=== PATIENT | male | born 1980 | race Caucasian/White ===

== ENCOUNTER 2017-03-07 15:54 | Inpatient (IN) | payer BC, OTHER ==
[2017-03-07] MEDS ORDERED: HYDROmorphone 1 MG/ML Syringe IVPUSH ONE ×3 (16:05→17:25)
[2017-03-07] MEDS ORDERED: Metoclopramide 10 MG/2 ML SDV IVPUSH ONE (16:05)
[2017-03-07] MEDS ORDERED: Iopamidol 612 MG/ML 150 ML Bottle IVPUSH ONE (16:07)
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
[2017-03-07] MEDS ORDERED: Sodium Chloride 0.9% 1,000 ML IV SCH (16:15)
[2017-03-07] MEDS: Sodium Chloride 0.9% 10 ML Syringe FLUSH ONE ×2 (16:46→16:49)
--- NOTE | 2017-03-07 16:51 | CT ---
Head CT Technique: Multiple axial sections through the brain were obtained. Intravenous contrast was not utilized. Comparison: No previous studies. Findings: Streak artifact is identified from backboard. This limits some details. Within the limitation caused by artifact, ventricles along with basal cisterns and sulci over the convexities are within normal limits. No abnormal parenchymal densities are seen. No evidence of intracranial hemorrhage. No midline shift or mass effect is seen. Bone window settings were reviewed which shows the visualized sinuses to appear clear. No discrete skull fracture is seen. Impression: 1. Slightly limited study as described above. Nothing acute is appreciated intracranially. No skull fracture is identified. Diagnostic code #2
--- NOTE | 2017-03-07 16:54 | CT ---
CT cervical spine Technique: Multiple axial sections were obtained from above C1 inferiorly to the top of T2. Reconstructed sagittal and coronal images were reviewed. Previous: No previous exam. Findings: Visualized mastoid sinuses and middle ear cavities are clear. Vertebral body heights and disc spaces are preserved. Vertebral bodies and posterior arches are intact. Minimal anterior endplate osteophytes are seen at C5-6. Minimal degenerative spurring noted between the dens and anterior arch of C1. No abnormal subluxation is seen. Mild scoliosis is seen. Impression: 1. Minimal degenerative change. 2. Mild scoliosis. 3. No acute fracture or abnormal subluxation is seen on CT study of the cervical spine. Diagnostic code #2
--- NOTE | 2017-03-07 17:00 | CT ---
CT thoracic spine Technique: Multiple axial sections were obtained through the thoracic spine. Reconstructed sagittal and coronal images were reviewed. Comparison: No previous study. Findings: Mild scattered endplate osteophytes are seen. Osteophytes are most prominent within the mid and lower thoracic spine. Minimal anterior wedging is noted of T9 believed to be developmental. Vertebral bodies and posterior arches are intact with no fracture being seen. No bony central or bony neural foraminal stenosis is seen. Impression: 1. Minimal endplate osteophytes. Slight anterior wedging of T9 believed to be developmental and old. 2. No acute abnormality is identified on CT study of the thoracic spine. Diagnostic code #2
--- NOTE | 2017-03-07 17:02 | CR ---
Left tibia and fibula: AP and lateral views of the left tibia and fibula were obtained. Fractures are identified in 2 locations within the distal fibula. Short intramedullary narcisa is seen within the fibula which shows bending. 2 screws are noted within the medial malleolus. Oblique fracture identified within the distal one third diaphysis of the tibia with mild angulation. No proximal abnormality is seen. Impression: 1. Fibular and tibia fracture. Bending of the intramedullary narcisa seen within the fibula. 2. No proximal abnormality is seen. Diagnostic code #3
[2017-03-07] MEDS ORDERED: Lidocaine 1% 10 ML MDV INJECT ONE (17:07)
--- NOTE | 2017-03-07 17:08 | CT ---
CT lumbar spine Technique: Multiple axial sections were obtained through the lumbar spine. Reconstructed sagittal and coronal images were reviewed. Findings: Spondylolisthesis is seen at L5-S1 which measures approximately 4.5 mm in severity. Findings are due to bilateral spondylolytic defects which appear to be old. Mild diffuse posterior disc bulge is seen. Vertebral bodies and posterior arches are otherwise intact with no acute fracture seen. No other findings of abnormal subluxation is seen. Posterior discs other than at L5-S1 are fairly well preserved. No traumatic disc herniation is seen. Minimal scoliosis is noted. Impression: 1. Mild spondylolisthesis due to to spondylolytic defects at L5-S1. These spondylolytic defects are felt to be old. Minimal scoliosis is seen. 2. No acute abnormality is identified on CT study of the lumbar spine. Diagnostic code #2
[2017-03-07] MEDS ORDERED: Lidocaine 1% 50 ML MDV ONE (17:13)
[2017-03-07] MEDS ORDERED: Diphtheria,Pertussis(Acell),Tetanus Vaccine 0.5 ML SDV inactive IM ONE (17:16)
--- NOTE | 2017-03-07 17:22 | CR ---
Left hand: 3 views of the left hand were obtained. No fracture, dislocation or other bony abnormality is seen. Impression: 1. No abnormality is identified on left hand exam. Diagnostic code #1
--- NOTE | 2017-03-07 17:23 | CT ---
CT chest Technique: Multiple axial sections through the chest were obtained. Reconstructed coronal and sagittal images were reviewed. Findings: No pericardial thickening is seen. No coronary artery calcification is seen. Mediastinum and hilar regions appear within normal limits. Opacified great vessels appear within normal limits. Lungs are clear. No pleural effusions or pneumothorax is seen. No pulmonary contusion is identified. No discrete rib fracture is seen. Impression: 1. Nothing acute seen on CT study of the chest. Diagnostic code #1 CT abdomen and pelvis Technique: Multiple axial sections were obtained from above the dome of the diaphragm inferiorly through the pubic symphysis. Intravenous contrast was utilized. Liver shows no focal parenchymal abnormality. Surgical clips are seen from prior cholecystectomy. Spleen appears within normal limits. Adrenal glands show no nodule. Pancreas is within normal limits. Small soft tissue nodules are identified off the spleen compatible with accessory splenic tissue. Kidneys show contrast-enhancement without hydronephrosis or mass. Aorta shows mild atherosclerotic calcification. No aneurysm is seen. No retroperitoneal adenopathy is seen. Appendix is seen which appears normal. No pelvic mass or adenopathy is seen. No free fluid or inflammatory change is seen within the abdomen or pelvis. Delayed images through the bladder show contrast within the distal ureters and within the bladder. Bone window settings were reviewed which again shows spondylolytic defects at L5-S1 with mild spondylolisthesis. No pelvic fracture is seen. Impression: 1. Incidental findings. Nothing acute is identified on CT study of the abdomen and pelvis. Diagnostic code #2
[2017-03-07] MEDS ORDERED: Morphine 10 MG/ML Syringe IVPUSH ONE (17:50)
[2017-03-07] MEDS ORDERED: Acetaminophen/oxyCODONE 325-5 MG Tab PO ONE (18:34)
[2017-03-07] MEDS ORDERED: Naloxone 2 MG/2 ML Syringe IVPUSH PRN (18:34)
[2017-03-07] MEDS ORDERED: Ondansetron 4 MG Tab.DIS PO PRN (18:34)
[2017-03-07] MEDS ORDERED: LORazepam 2 MG/ML MDV IVPUSH ONE (18:40)
[2017-03-07] MEDS ORDERED: Sodium Chloride 0.9% 10 ML Syringe FLUSH PRN (18:44)
[2017-03-07] MEDS: Cyclobenzaprine 10 MG Tab PO PRN (18:59)
[2017-03-07] MEDS: Morphine 2 MG/ML Syringe IVPUSH PRN ×2 (19:03→21:13)
[2017-03-07] MEDS: Acetaminophen/oxyCODONE 325-5 MG Tab PO PRN (21:11)
[2017-03-07] MEDS: oxyCODONE 5 MG Tab PO PRN (23:37)
[2017-03-08] MEDS: Morphine 2 MG/ML Syringe IVPUSH PRN ×4 (01:28→22:00)
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
[2017-03-08] MEDS ORDERED: Bupivacaine 0.25% 30 ML SDV ONE (07:02)
[2017-03-08] MEDS ORDERED: Rocuronium 50 MG/5 ML Vial ONE (07:23)
[2017-03-08] MEDS ORDERED: Ondansetron 4 MG/2 ML SDV ONE (07:23)
[2017-03-08] MEDS ORDERED: fentaNYL 250 MCG/5 ML SDV ONE (07:23)
[2017-03-08] MEDS ORDERED: Propofol 200 MG/20 ML SDV ONE (07:23)
[2017-03-08] MEDS ORDERED: Lidocaine 1% 4 ML ONE (07:23)
[2017-03-08] MEDS ORDERED: Midazolam 1 MG/ML 2 ML SDV ONE (07:23)
[2017-03-08] MEDS ORDERED: ceFAZolin 1 GM Vial ONE (07:27)
[2017-03-08] MEDS ORDERED: Lactated Ringers 1,000 ML ONE ×2 (07:27→10:33)
[2017-03-08] MEDS ORDERED: Morphine PF 10 MG/10 ML SDV ONE (07:42)
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
[2017-03-08] MEDS ORDERED: Metoclopramide 10 MG/2 ML SDV IV PRN (08:07)
[2017-03-08] MEDS ORDERED: fentaNYL 100 MCG/2 ML SDV IVPUSH PRN (08:07)
[2017-03-08] MEDS ORDERED: Ondansetron 4 MG/2 ML SDV IVPUSH PRN (08:07)
[2017-03-08] MEDS ORDERED: diphenhydrAMINE 50 MG/ML SDV IVPUSH PRN (08:07)
[2017-03-08] MEDS ORDERED: Meperidine PF 50 MG/ML Syringe IVPUSH PRN (08:07)
[2017-03-08] MEDS ORDERED: Phenylephrine/Normal Saline 100 MCG/ML 10 ML Syringe ONE (08:17)
[2017-03-08] MEDS: Bupivacaine 0.25% 30 ML SDV ONE ×2 (08:27→10:31)
--- NOTE | 2017-03-08 08:36 | PCM.SN ---
- Free Text/Narrative Note: 03/08/17 [id number] Monitors on. Alarms set. Sit for Spinal for post op pain relief per patient and surgeon request. Sterile prep and drape. Clear free flow CSF. No heme no paresthesia. Bupivacaine 7.5% 1 ml given with duramorph .2mg PF. with 1 ml CSF. Supine after. Maximino procedure well. Vitals stable. 156/74 HR 103 SAt 99% REsp 16
--- NOTE | 2017-03-08 10:58 | PCM.POSTAN ---
POST ANESTHESIA ASSESSMENT - MENTAL STATUS Mental Status: somnolent - VITAL SIGNS Pulse Rate: 89 SaO2: 100 Resp Rate: 11 Blood Pressure: 111/75 Temperature: 98.1 F - RESPIRATORY Respiratory Status: respiratory rate WNL, airway patent, O2 saturation stable, supplemental oxygen - CARDIOVASCULAR CV Status: pulse rate WNL, blood pressure stable - GASTROINTESTINAL GI Status: no symptoms - PAIN Pain Score: 0 - POST OP HYDRATION Hydration Status: adequate & stable
[2017-03-08] MEDS ORDERED: Albuterol 0.083% 2.5 MG/3 ML Neb Soln NEB ONE (11:07)
[2017-03-08] MEDS ORDERED: Albuterol 0.083% 2.5 MG/3 ML Neb Soln NEB PRN (11:09)
[2017-03-08] MEDS: ceFAZolin 2 GM in Premix Bag 1 BAG IV SCH ×2 (14:07→22:07)
[2017-03-08] MEDS: oxyCODONE 5 MG Tab PO PRN ×2 (14:31→20:58)
--- NOTE | 2017-03-08 18:09 | PCM48HPAN ---
Post Anesthesia Note - EVALUATION WITHIN 48HRS OF ANESTHETIC Vital Signs in Normal Range: Yes Patient Participated in Evaluation: Yes Respiratory Function Stable: Yes Airway Patent: Yes Cardiovascular Function Stable: Yes Hydration Status Stable: Yes Pain Control Satisfactory: Yes (describes as an 8- pain pills given) Nausea and Vomiting Control Satisfactory: Yes Mental Status Recovered: Yes
[2017-03-08] MEDS: Acetaminophen/oxyCODONE 325-5 MG Tab PO PRN ×2 (18:11→22:18)
[2017-03-08] MEDS: Cyclobenzaprine 10 MG Tab PO PRN (20:02)
[2017-03-08] MEDS ORDERED: HYDROmorphone/Normal Saline 6 MG/30 ML PCA Vial IV PRN (22:38)
[2017-03-08] MEDS ORDERED: Ketorolac 30 MG/ML SDV IM ONE (22:42)
[2017-03-08] MEDS ORDERED: Ketorolac 30 MG/ML SDV IVPUSH ONE (22:42)
[2017-03-08] MEDS ORDERED: Sodium Chloride 0.9% 1,000 ML IV SCH (23:00)
[2017-03-09] MEDS: ceFAZolin 2 GM in Premix Bag 1 BAG IV SCH (06:23)
--- NOTE | 2017-03-09 08:01 | PCM.OPNOTE ---
- General Post-Op/Procedure Note Date of Surgery/Procedure: 03/08/17 Operative Procedure(s): open reduction internal fixation of left distal tibia and fibula with hardware removal left fibula Pre Op Diagnosis: left distal extraarticular tibia fracture and distal fibula fracture with retained hardware Post-Op Diagnosis: Same Anesthesia Technique: Local, MAC, Spinal Primary Surgeon: Micheal Valente Anesthesia Provider: Linette Kaiser Contact Lens Polisher: Hollie Lucia EBL in mLs: 30 Complications: None Condition: Good Free Text/Narrative:: Intake & Output 03/08/17 03/09/17 03/09/17 22:59 06:59 14:59 Intake Total 620 930 Output Total 400 1550 Balance 220 -620
--- NOTE | 2017-03-09 09:17 | OR ---
DATE OF OPERATION: 03/08/2017 SURGEON: Micheal Valente MD OPERATION PERFORMED: Open reduction and internal fixation of the left distal tibia and fibula fracture with hardware removal, left fibula. PREOPERATIVE DIAGNOSIS: Left distal extra-articular tibial fracture and distal fibular fracture with retained hardware. POSTOPERATIVE DIAGNOSIS: Left distal extra-articular tibial fracture and distal fibular fracture with retained hardware. ANESTHESIA: Local MAC with spinal. ANESTHESIA PROVIDER: Linette Kaiser CRNA SUPERVISING NURSE: Hollie Lucia PA-C. ESTIMATED BLOOD LOSS: 30 mL. COMPLICATIONS: None. CONDITION: Stable. DESCRIPTION OF PROCEDURE: The patient was identified in the preop holding area, proper site was marked and identified by the surgeon. The patient was taken back to the operating theater, where after adequate anesthesia the patient's left lower extremity had a nonsterile tourniquet applied and then was sterilely prepped and draped in the usual sterile fashion. OR time-out was performed. The patient received 2 g IV Ancef. At this time, the left upper extremity was sterilely prepped and draped in the usual sterile fashion. Left upper extremity was exsanguinated. Tourniquet was insufflated to 300 mmHg. At this time, it was decided that secondary to the pin being bent in his fibula, this would have to be removed in order to get a correction of the fracture. A small incision was made on the distal fibula. Just distal lateral malleolus, the previous brush narcisa was identified and then was removed. At this time, a correction of the deformity could be made. Using C-arm fluoroscopy, it was decided that we would use a distal tibial plate as the patient's fracture was too distal roughly only 15 mm from the articular surface. The standard anterolateral approach to the tibia was made, centered in line with the 4th ray. This was taken down to the extensor retinaculum, which was incised along its length. The tendons were retracted medially. Superficial peroneal nerve was protected and the fracture site was identified. At this time, a reduction was done with a [id number] clamp. Two 3.5 cortical screws were placed in lag technique by design across the fracture site and was found to have adequate fixation with complete reduction on AP and lateral views. At this time, a Peggy stainless steel distal tibial anterolateral locking plate was placed. We used an 8-hole plate and was found to be able to get 4 cortices above the fracture. At this time, it was aligned properly using C-arm fluoroscopy, and it was held provisionally in place with K-wires. Starting distally, I was able to place a 3.5 cortical screw distally in the shaft and then 3 screws were placed, 2 locking, 1 nonlocking, a bit on the distal aspect near the articular margin. Attention was then turned proximally and 4 screws were placed proximally in the shaft, proximal to the fracture site, 2 locking and 2 nonlocking screws. One of the locking screws was unable to be fully seated, but was found to have adequate fixation. These were all done percutaneous with perfect [place] technique. The 1 more nonlocking screw was placed distally along with 1 more locking screw and those was found to have adequate fixation. At this time, it was decided that we would do subcutaneous plating of the fibula. A 1/3 semitubular plate was then placed up subcutaneous on the fibula and percutaneous technique was again used to fill 2 screw holes distally and 3 screw holes proximally. This found to have adequate reduction and fixation on both AP and lateral views. Adequate saline was irrigated through both wounds. A 0 Vicryl was used for closure of the retinaculum, 2-0 Vicryl was used subcutaneously, and 3-0 and 4-0 nylon were used for the skin. The patient was placed in a posterior slab splint, tolerated the procedure well, and was sent to PACU in stable condition. SUSAN /[id number]
[2017-03-09] MEDS: oxyCODONE 5 MG Tab PO PRN (09:21)
[2017-03-09] MEDS: Aspirin 325 MG Tab.EC PO SCH ×2 (09:21→21:14)
[2017-03-09] MEDS: Cyclobenzaprine 10 MG Tab PO PRN ×2 (09:22→21:14)
[2017-03-09] MEDS: Acetaminophen/oxyCODONE 325-5 MG Tab PO PRN ×3 (09:43→21:22)
[2017-03-09] MEDS ORDERED: HYDROmorphone 0.5 MG/0.5 ML Syringe IVPUSH ONE (09:50)
--- NOTE | 2017-03-09 12:06 | PCM.SURGPN ---
- General Info Date of Service: 03/09/17 POD#: 1 Functional Status: Reports: other - Review of Systems General: Denies: Fever, Chills Pulmonary: Denies: shortness of breath Musculoskeletal: Reports: other (The pt reports his pain is better controlled today. He stated he did well with therapy today.) - Patient Data Vitals - most recent: Last Vital Signs Temp 98.2 F 03/09/17 11:51 Pulse 86 03/09/17 11:51 Resp 16 03/09/17 11:51 BP 181/92 H 03/09/17 11:51 Pulse Ox 99 03/09/17 11:51 Weight - most recent: 249 lb 12.8 oz I&O - last 24 hours: Intake & Output 03/08/17 03/09/17 03/09/17 22:59 06:59 14:59 Intake Total 620 930 240 Output Total 400 1550 Balance 220 -620 240 Med Orders - Current: Current Medications Albuterol (Proventil Neb Soln) 2.5 mg NEB Q4HRRT PRN PRN Reason: Shortness of Breath Aspirin (Ecotrin) 325 mg PO BID COUNTS INCLUDE 234 BEDS AT THE [facility] Last Admin: 03/09/17 09:21 Dose: 325 mg Cyclobenzaprine HCl (Flexeril) 10 mg PO TID PRN PRN Reason: Spasms Last Admin: 03/09/17 09:22 Dose: 10 mg Diphenhydramine HCl (Benadryl) 25 mg IVPUSH Q6H PRN PRN Reason: pruritis Last Admin: 03/08/17 14:31 Dose: 25 mg Sodium Chloride (Normal Saline) 1,000 mls @ 25 mls/hr IV ASDIRECTED COUNTS INCLUDE 234 BEDS AT THE [facility] Stop: 03/12/17 22:57 Last Admin: 03/08/17 23:13 Dose: 25 mls/hr Morphine Sulfate (Morphine) 2 mg IVPUSH Q2H PRN PRN Reason: Pain Last Admin: 03/08/17 22:00 Dose: 2 mg Ondansetron HCl (Zofran Odt) 4 mg PO Q6H PRN PRN Reason: Nausea Oxycodone HCl (Oxycodone) 5 mg PO Q6H PRN PRN Reason: Pain (severe 7-10) Last Admin: 03/09/17 09:21 Dose: 5 mg Oxycodone/Acetaminophen (Percocet 325-5 Mg) 1 - 2 tab PO Q4H PRN PRN Reason: Pain Last Admin: 03/09/17 09:43 Dose: 2 tab Sodium Chloride (Saline Flush) 10 ml FLUSH ASDIRECTED PRN PRN Reason: Keep Vein Open Discontinued Medications Albuterol (Proventil Neb Soln) 2.5 mg NEB ONETIME ONE Stop: 03/08/17 11:08 Last Admin: 03/08/17 12:24 Dose: Not Given Bupivacaine HCl (Marcaine 0.25%) Confirm Administered Dose 30 ml .ROUTE .STK- MED ONE Stop: 03/08/17 06:47 Last Admin: 03/08/17 10:31 Dose: 20 ml Bupivacaine HCl (Marcaine 0.25%) Confirm Administered Dose 30 ml .ROUTE .STK- MED ONE Stop: 03/08/17 07:03 Cefazolin Sodium (Ancef) Confirm Administered Dose 2 gm .ROUTE .STK-MED ONE Stop: 03/08/17 07:28 Diphtheria/Tetanus/Acell Pertussis (Boostrix) 0.5 ml IM .ONCE ONE Stop: 03/07/17 17:17 Last Admin: 03/07/17 17:44 Dose: 0.5 ml Fentanyl (Sublimaze) Confirm Administered Dose 250 mcg .ROUTE .STK-MED ONE Stop: 03/08/17 07:24 Fentanyl (Sublimaze) 50 mcg IVPUSH Q5M PRN PRN Reason: Pain Hydromorphone HCl (Dilaudid) 1 mg IVPUSH ONETIME ONE Stop: 03/07/17 16:06 Last Admin: 03/07/17 16:44 Dose: 1 mg Hydromorphone HCl (Dilaudid) 1 mg IVPUSH ONETIME ONE Stop: 03/07/17 16:06 Last Admin: 03/07/17 16:05 Dose: 1 mg Hydromorphone HCl (Dilaudid) 1 mg IVPUSH ONETIME ONE Stop: 03/07/17 17:26 Last Admin: 03/07/17 17:24 Dose: 1 mg Hydromorphone HCl (Dilaudid Press Leader 6 Mg In Ns 30 Ml) 6 mg IV ASDIRECTED PRN; Protocol PRN Reason: Pain (severe 7-10) Last Admin: 05/06/17 23:09 Dose: 6 mg Hydromorphone HCl (Dilaudid) 0.5 mg IVPUSH ONETIME ONE Stop: 03/09/17 09:51 Last Admin: 03/09/17 09:43 Dose: 0.5 mg Sodium Chloride (Normal Saline) 1,000 mls @ 200 mls/hr IV ASDIRECTED COUNTS INCLUDE 234 BEDS AT THE [facility] Last Admin: 03/07/17 16:40 Dose: 200 mls/hr Lidocaine HCl (Xylocaine-Mpf 1%) Confirm Administered Dose 4 mls @ as directed .ROUTE .STK-MED ONE Stop: 03/08/17 07:24 Lactated Ringer's (Ringers, Lactated) Confirm Administered Dose 1,000 mls @ as directed .ROUTE .STK-MED ONE Stop: 03/08/17 07:28 Lactated Ringer's (Ringers, Lactated) Confirm Administered Dose 1,000 mls @ as directed .ROUTE .STK-MED ONE Stop: 03/08/17 10:34 Cefazolin Sodium/Dextrose 2 gm (/ Premix) 50 mls @ 100 mls/hr IV Q8H COUNTS INCLUDE 234 BEDS AT THE [facility] Stop: 03/09/17 07:29 Last Admin: 03/09/17 06:23 Dose: 100 mls/hr Iopamidol (Isovue-300 (61%)) 150 ml IVPUSH ONETIME ONE Stop: 03/07/17 16:08 Last Admin: 03/07/17 16:25 Dose: 125 ml Ketorolac Tromethamine (Toradol) 50 mg IVPUSH ONETIME ONE Stop: 03/08/17 22:43 Last Admin: 03/08/17 22:42 Dose: Not Given Ketorolac Tromethamine (Toradol) 50 mg IM ONETIME ONE Stop: 03/08/17 22:43 Last Admin: 03/09/17 00:51 Dose: 50 mg Lidocaine HCl (Xylocaine 1%) 50 ml INJECT ONETIME ONE Stop: 03/07/17 17:08 Last Admin: 03/07/17 21:18 Dose: Not Given Lidocaine HCl (Xylocaine 1%) Confirm Administered Dose 50 ml .ROUTE .STK-MED ONE Stop: 03/07/17 17:14 Last Admin: 03/07/17 18:18 Dose: Not Given Lorazepam (Ativan) 0.5 mg IVPUSH ONETIME ONE Stop: 03/07/17 18:41 Last Admin: 03/07/17 18:46 Dose: 0.5 mg Meperidine HCl (Demerol) 12.5 mg IVPUSH ONETIME PRN PRN Reason: shivering Stop: 03/09/17 08:08 Metoclopramide HCl (Reglan) 10 mg IVPUSH ONETIME ONE Stop: 03/07/17 16:06 Last Admin: 03/07/17 16:41 Dose: 10 mg Metoclopramide HCl (Reglan) 10 mg IV ONETIME PRN PRN Reason: Nausea/Vomiting Midazolam HCl (Versed 1 Mg/Ml) Confirm Administered Dose 2 mg .ROUTE .STK-MED ONE Stop: 03/08/17 07:24 Morphine Sulfate (Morphine) 6 mg IVPUSH ONETIME ONE Stop: 03/07/17 17:51 Last Admin: 03/07/17 17:55 Dose: 6 mg Morphine Sulfate (Duramorph Pf) Confirm Administered Dose 10 mg .ROUTE .STK-MED ONE Stop: 03/08/17 07:43 Naloxone HCl (Narcan) 0.1 mg IVPUSH ONETIME PRN PRN Reason: Oversedation Ondansetron HCl (Zofran) Confirm Administered Dose 4 mg .ROUTE .STK-MED ONE Stop: 03/08/17 07:24 Ondansetron HCl (Zofran) 4 mg IVPUSH ONETIME PRN PRN Reason: Nausea/Vomiting Oxycodone/Acetaminophen (Percocet 325-5 Mg) 1 - 2 tab PO Q4H ONE Stop: 03/07/17 18:35 Last Admin: 03/08/17 12:45 Dose: Not Given Phenylephrine HCl (Phenylephrine In Ns 100 Mcg/Ml) Confirm Administered Dose 1 mg .ROUTE .STK-MED ONE Stop: 03/08/17 08:18 Propofol (Diprivan 20 Ml) Confirm Administered Dose 200 mg .ROUTE .STK-MED ONE Stop: 03/08/17 07:24 Rocuronium [place] (Zemuron) Confirm Administered Dose 50 mg .ROUTE .STK-MED ONE Stop: 03/08/17 07:24 Sodium Chloride (Saline Flush) 10 ml FLUSH ONETIME ONE Stop: 03/07/17 16:08 Last Admin: 03/07/17 16:49 Dose: 10 ml - Exam Wound/Incisions: dressing dry and intact General: cooperative, no acute distress Lungs: No: Normal respiratory effort Extremities: other (The pt was able to flex and extend toes without difficulty. Independent SLR LLE. The pt was able to sense light touch and capillary refill normal for LLE.) - Problem List Review Problem List Initiated/Reviewed/Updated: Yes - My Orders Last 24 Hours: Active Orders 24 hr Category Date Time Status Incentive Spirometry [RT Incentive Spirometry] [RC] Care 03/08/17 11:06 Active ASDIRECTED Insert Urinary Catheter [OM.PC] Q24H Care 03/09/17 00:30 Ordered RT Aerosol Therapy [RC] ASDIRECTED Care 03/08/17 11:08 Active Turn, Cough, Deep Breathe [RC] INTERMITTENT Care 03/08/17 11:09 Active Vital Signs [RC] Q4HR Care 03/08/17 11:50 Active Regular Diet [DIET] Diet 03/08/17 Dinner Active Ankle Min 3V Lt [CR] Routine Exams 03/08/17 11:10 Taken Albuterol [Proventil Neb Soln] Med 03/08/17 11:09 Active 2.5 mg NEB Q4HRRT PRN Aspirin [Ecotrin] Med 03/09/17 09:00 Active 325 mg PO BID Sodium Chloride 0.9% [Normal Saline] 1,000 ml Med 03/08/17 23:00 Active IV ASDIRECTED Medication Orders Albuterol (Proventil Neb Soln) 2.5 mg NEB Q4HRRT PRN PRN Reason: Shortness of Breath Aspirin (Ecotrin) 325 mg PO BID BI Last Admin: 03/09/17 09:21 Dose: 325 mg Cyclobenzaprine HCl (Flexeril) 10 mg PO TID PRN PRN Reason: Spasms Last Admin: 03/09/17 09:22 Dose: 10 mg Admin: 03/08/17 20:02 Dose: 10 mg Admin: 03/07/17 18:59 Dose: 10 mg Diphenhydramine HCl (Benadryl) 25 mg IVPUSH Q6H PRN PRN Reason: pruritis Last Admin: 03/08/17 14:31 Dose: 25 mg Sodium Chloride (Normal Saline) 1,000 mls @ 25 mls/hr IV ASDIRECTED BI Stop: 03/12/17 22:57 Last Admin: 03/08/17 23:13 Dose: 25 mls/hr Morphine Sulfate (Morphine) 2 mg IVPUSH Q2H PRN PRN Reason: Pain Last Admin: 03/08/17 22:00 Dose: 2 mg Admin: 03/08/17 07:32 Dose: 2 mg Admin: 03/08/17 05:46 Dose: 2 mg Admin: 03/08/17 01:28 Dose: 2 mg Admin: 03/07/17 21:13 Dose: 2 mg Admin: 03/07/17 19:03 Dose: 2 mg Ondansetron HCl (Zofran Odt) 4 mg PO Q6H PRN PRN Reason: Nausea Oxycodone HCl (Oxycodone) 5 mg PO Q6H PRN PRN Reason: Pain (severe 7-10) Last Admin: 03/09/17 09:21 Dose: 5 mg Admin: 03/08/17 20:58 Dose: 5 mg Admin: 03/08/17 14:31 Dose: 5 mg Admin: 03/07/17 23:37 Dose: 5 mg Oxycodone/Acetaminophen (Percocet 325-5 Mg) 1 - 2 tab PO Q4H PRN PRN Reason: Pain Last Admin: 03/09/17 09:43 Dose: 2 tab Admin: 03/08/17 22:18 Dose: 2 tab Admin: 03/08/17 18:11 Dose: 2 tab Admin: 03/07/17 21:11 Dose: 1 tab Sodium Chloride (Saline Flush) 10 ml FLUSH ASDIRECTED PRN PRN Reason: Keep Vein Open - Assessment Assessment (Free Text/Narrative):: POD#1 - ORIF left distal tibia and left fibular fractures - Plan Plan (Free Text/Narrative):: 1. ASA 325mg BID. 2. The pt will remain in Hospital another night for pain control and further monitoring. 3. Continue with P.T. The pt was evaluated by Dr. Sidra lopez.
[2017-03-09] MEDS: Morphine 2 MG/ML Syringe IVPUSH PRN (17:25)
[2017-03-10] MEDS: Acetaminophen/oxyCODONE 325-5 MG Tab PO PRN ×3 (03:14→16:25)
[2017-03-10] MEDS: oxyCODONE 5 MG Tab PO PRN (05:00)
[2017-03-10 08:12] VITALS: BP 144/85
[2017-03-10] MEDS ORDERED: Magnesium Hydroxide 400 MG/5 ML Susp 30 ML Cup PO ONE (09:15)
[2017-03-10] MEDS: Aspirin 325 MG Tab.EC PO SCH (09:59)
--- NOTE | 2017-03-10 10:33 | CR ---
Left tibia/fibula/ankle: Multiple fluoroscopic spot views were obtained of the left tibia/fibula/ankle. Study obtained utilizing C-arm device. Findings: Previous intramedullary narcisa has been removed within the fibula. Screws remain within the medial malleolus. Plate and screws which appear new are placed within the distal tibia. Plate and screws also noted within the distal fibula. Ankle mortise is symmetric. Fluoroscopy time not given at time of dictation. Impression: 1. Operative study of affixing previous distal tibia and fibular fractures with placement of plate and screws. Diagnostic code #2
--- NOTE | 2017-03-10 10:34 | CR ---
Left ankle: Three views of the left ankle were obtained. Comparison: Previous left ankle fluoroscopic study performed earlier on the same day (8:48 AM) and baseline left tibia and fibula exam of 03/07/17. Plate and screws are identified within the distal tibia and fibula affixing previous fractures. Two stable screws within the medial malleolus is seen. Fractures appear anatomic in alignment. Fiberglass splint is in place. Impression: 1. Plate and screws affixing previous distal tibia and fibular fractures. Diagnostic code #2
--- NOTE | 2017-03-10 13:22 | CR ---
Left forearm: Two views of the left forearm were obtained. Calcification noted within the distal triceps tendon at its attachment to the olecranon process. No acute fracture is seen. Calcification compatible with old chip fracture is noted off the posterior wrist. Impression: 1. Calcification within the distal triceps tendon. 2. Old chip fracture off the posterior wrist. Diagnostic code #2
--- NOTE | 2017-03-10 13:22 | CR ---
Left ankle: Four views of the left ankle were obtained. Study is only now been submitted for final interpretation. Fractures of the distal fibular noted in two locations. Distal tibial fracture is also seen. Bending of short intramedullary narcisa within the fibula is seen. Two orthopedic screws are noted affixing old medial malleolus fracture. Fiberglass cast is in place. Impression: 1. Distal tibia and fibular fractures. Other incidental findings. Diagnostic code #3
--- NOTE | 2017-03-10 16:52 | PCM.SURGPN ---
- General Info Date of Service: 03/10/17 POD#: 2 Functional Status: Reports: pain controlled, tolerating diet, ambulating, urinating. Denies: new symptoms - Review of Systems Musculoskeletal: Reports: other (The pt reports he is prepared for discharge to home and his pain is under better control.) - Patient Data Vitals - most recent: Last Vital Signs Temp 97.9 F 03/10/17 08:04 Pulse 78 03/10/17 08:04 Resp 18 03/10/17 08:04 BP 144/85 H 03/10/17 08:04 Pulse Ox 92 L 03/10/17 14:54 Weight - most recent: 244 lb 9.6 oz I&O - last 24 hours: Intake & Output 03/10/17 03/10/17 03/10/17 06:59 14:59 22:59 Intake Total 800 340 Output Total 2600 Balance -1800 340 Med Orders - Current: Current Medications Albuterol (Proventil Neb Soln) 2.5 mg NEB Q4HRRT PRN PRN Reason: Shortness of Breath Aspirin (Ecotrin) 325 mg PO BID BI Last Admin: 03/10/17 09:59 Dose: 325 mg Cyclobenzaprine HCl (Flexeril) 10 mg PO TID PRN PRN Reason: Spasms Last Admin: 03/09/17 21:14 Dose: 10 mg Diphenhydramine HCl (Benadryl) 25 mg IVPUSH Q6H PRN PRN Reason: pruritis Last Admin: 03/08/17 14:31 Dose: 25 mg Morphine Sulfate (Morphine) 2 mg IVPUSH Q2H PRN PRN Reason: Pain Last Admin: 03/09/17 17:25 Dose: 2 mg Ondansetron HCl (Zofran Odt) 4 mg PO Q6H PRN PRN Reason: Nausea Oxycodone HCl (Oxycodone) 5 mg PO Q6H PRN PRN Reason: Pain (severe 7-10) Last Admin: 03/10/17 05:00 Dose: 5 mg Oxycodone/Acetaminophen (Percocet 325-5 Mg) 1 - 2 tab PO Q4H PRN PRN Reason: Pain Last Admin: 03/10/17 16:25 Dose: 2 tab Sodium Chloride (Saline Flush) 10 ml FLUSH ASDIRECTED PRN PRN Reason: Keep Vein Open Discontinued Medications Albuterol (Proventil Neb Soln) 2.5 mg NEB ONETIME ONE Stop: 03/08/17 11:08 Last Admin: 03/08/17 12:24 Dose: Not Given Bupivacaine HCl (Marcaine 0.25%) Confirm Administered Dose 30 ml .ROUTE .STK- MED ONE Stop: 03/08/17 06:47 Last Admin: 03/08/17 10:31 Dose: 20 ml Bupivacaine HCl (Marcaine 0.25%) Confirm Administered Dose 30 ml .ROUTE .STK- MED ONE Stop: 03/08/17 07:03 Cefazolin Sodium (Ancef) Confirm Administered Dose 2 gm .ROUTE .STK-MED ONE Stop: 03/08/17 07:28 Diphtheria/Tetanus/Acell Pertussis (Boostrix) 0.5 ml IM .ONCE ONE Stop: 03/07/17 17:17 Last Admin: 03/07/17 17:44 Dose: 0.5 ml Fentanyl (Sublimaze) Confirm Administered Dose 250 mcg .ROUTE .STK-MED ONE Stop: 03/08/17 07:24 Fentanyl (Sublimaze) 50 mcg IVPUSH Q5M PRN PRN Reason: Pain Hydromorphone HCl (Dilaudid) 1 mg IVPUSH ONETIME ONE Stop: 03/07/17 16:06 Last Admin: 03/07/17 16:44 Dose: 1 mg Hydromorphone HCl (Dilaudid) 1 mg IVPUSH ONETIME ONE Stop: 03/07/17 16:06 Last Admin: 03/07/17 16:05 Dose: 1 mg Hydromorphone HCl (Dilaudid) 1 mg IVPUSH ONETIME ONE Stop: 03/07/17 17:26 Last Admin: 03/07/17 17:24 Dose: 1 mg Hydromorphone HCl (Dilaudid Assistant To The Director 6 Mg In Ns 30 Ml) 6 mg IV ASDIRECTED PRN; Protocol PRN Reason: Pain (severe 7-10) Last Admin: 03/08/17 23:09 Dose: 6 mg Hydromorphone HCl (Dilaudid) 0.5 mg IVPUSH ONETIME ONE Stop: 03/09/17 09:51 Last Admin: 03/09/17 09:43 Dose: 0.5 mg Sodium Chloride (Normal Saline) 1,000 mls @ 200 mls/hr IV ASDIRECTED [facility] Last Admin: 03/07/17 16:40 Dose: 200 mls/hr Lidocaine HCl (Xylocaine-Mpf 1%) Confirm Administered Dose 4 mls @ as directed .ROUTE .STK-MED ONE Stop: 03/08/17 07:24 Lactated Ringer's (Ringers, Lactated) Confirm Administered Dose 1,000 mls @ as directed .ROUTE .[facility] ONE Stop: 03/08/17 07:28 Lactated Ringer's (Ringers, Lactated) Confirm Administered Dose 1,000 mls @ as directed .ROUTE .[facility] ONE Stop: 03/08/17 10:34 Cefazolin Sodium/Dextrose 2 gm (/ Premix) 50 mls @ 100 mls/hr IV Q8H [facility] Stop: 03/09/17 07:29 Last Admin: 03/09/17 06:23 Dose: 100 mls/hr Sodium Chloride (Normal Saline) 1,000 mls @ 25 mls/hr IV ASDIRECTED [facility] Stop: 03/12/17 22:57 Last Admin: 03/08/17 23:13 Dose: 25 mls/hr Iopamidol (Isovue-300 (61%)) 150 ml IVPUSH ONETIME ONE Stop: 03/07/17 16:08 Last Admin: 03/07/17 16:25 Dose: 125 ml Ketorolac Tromethamine (Toradol) 50 mg IVPUSH ONETIME ONE Stop: 03/08/17 22:43 Last Admin: 03/08/17 22:42 Dose: Not Given Ketorolac Tromethamine (Toradol) 50 mg IM ONETIME ONE Stop: 03/08/17 22:43 Last Admin: 03/09/17 00:51 Dose: 50 mg Lidocaine HCl (Xylocaine 1%) 50 ml INJECT ONETIME ONE Stop: 03/07/17 17:08 Last Admin: 03/07/17 21:18 Dose: Not Given Lidocaine HCl (Xylocaine 1%) Confirm Administered Dose 50 ml .ROUTE .STK-MED ONE Stop: 03/07/17 17:14 Last Admin: 03/07/17 18:18 Dose: Not Given Lorazepam (Ativan) 0.5 mg IVPUSH ONETIME ONE Stop: 03/07/17 18:41 Last Admin: 03/07/17 18:46 Dose: 0.5 mg Magnesium Hydroxide (Milk Of Magnesia) 30 ml PO ONETIME ONE Stop: 03/10/17 09:16 Last Admin: 03/10/17 09:59 Dose: 30 ml Meperidine HCl (Demerol) 12.5 mg IVPUSH ONETIME PRN PRN Reason: shivering Stop: 03/09/17 08:08 Metoclopramide HCl (Reglan) 10 mg IVPUSH ONETIME ONE Stop: 03/07/17 16:06 Last Admin: 03/07/17 16:41 Dose: 10 mg Metoclopramide HCl (Reglan) 10 mg IV ONETIME PRN PRN Reason: Nausea/Vomiting Midazolam HCl (Versed 1 Mg/Ml) Confirm Administered Dose 2 mg .ROUTE .STK-MED ONE Stop: 03/08/17 07:24 Morphine Sulfate (Morphine) 6 mg IVPUSH ONETIME ONE Stop: 03/07/17 17:51 Last Admin: 03/07/17 17:55 Dose: 6 mg Morphine Sulfate (Duramorph Pf) Confirm Administered Dose 10 mg .ROUTE .STK-MED ONE Stop: 03/08/17 07:43 Naloxone HCl (Narcan) 0.1 mg IVPUSH ONETIME PRN PRN Reason: Oversedation Ondansetron HCl (Zofran) Confirm Administered Dose 4 mg .ROUTE .STK-MED ONE Stop: 03/08/17 07:24 Ondansetron HCl (Zofran) 4 mg IVPUSH ONETIME PRN PRN Reason: Nausea/Vomiting Oxycodone/Acetaminophen (Percocet 325-5 Mg) 1 - 2 tab PO Q4H ONE Stop: 03/07/17 18:35 Last Admin: 03/08/17 12:45 Dose: Not Given Phenylephrine HCl (Phenylephrine In Ns 100 Mcg/Ml) Confirm Administered Dose 1 mg .ROUTE .STK-MED ONE Stop: 03/08/17 08:18 Propofol (Diprivan 20 Ml) Confirm Administered Dose 200 mg .ROUTE .STK-MED ONE Stop: 03/08/17 07:24 Rocuronium [place] (Zemuron) Confirm Administered Dose 50 mg .ROUTE .STK-MED ONE Stop: 03/08/17 07:24 Sodium Chloride (Saline Flush) 10 ml FLUSH ONETIME ONE Stop: 03/07/17 16:08 Last Admin: 03/07/17 16:49 Dose: 10 ml - Exam Wound/Incisions: dressing dry and intact General: alert, cooperative, no acute distress Lungs: Normal respiratory effort Extremities: no calf tenderness, other (NVS intact for LLE. Independent SLR LLE. ) - Problem List Review Problem List Initiated/Reviewed/Updated: Yes - My Orders Last 24 Hours: Active Orders 24 hr Category Date Time Status Ready for Discharge [RC] PER UNIT ROUTINE Care 03/10/17 15:40 Active Medication Orders Albuterol (Proventil Neb Soln) 2.5 mg NEB Q4HRRT PRN PRN Reason: Shortness of Breath Aspirin (Ecotrin) 325 mg PO BID BI Last Admin: 03/10/17 09:59 Dose: 325 mg Admin: 03/09/17 21:14 Dose: 325 mg Admin: 03/09/17 09:21 Dose: 325 mg Cyclobenzaprine HCl (Flexeril) 10 mg PO TID PRN PRN Reason: Spasms Last Admin: 03/09/17 21:14 Dose: 10 mg Admin: 03/09/17 09:22 Dose: 10 mg Admin: 03/08/17 20:02 Dose: 10 mg Admin: 03/07/17 18:59 Dose: 10 mg Diphenhydramine HCl (Benadryl) 25 mg IVPUSH Q6H PRN PRN Reason: pruritis Last Admin: 03/08/17 14:31 Dose: 25 mg Morphine Sulfate (Morphine) 2 mg IVPUSH Q2H PRN PRN Reason: Pain Last Admin: 03/09/17 17:25 Dose: 2 mg Admin: 03/08/17 22:00 Dose: 2 mg Admin: 03/08/17 07:32 Dose: 2 mg Admin: 03/08/17 05:46 Dose: 2 mg Admin: 03/08/17 01:28 Dose: 2 mg Admin: 03/07/17 21:13 Dose: 2 mg Admin: 03/07/17 19:03 Dose: 2 mg Ondansetron HCl (Zofran Odt) 4 mg PO Q6H PRN PRN Reason: Nausea Oxycodone HCl (Oxycodone) 5 mg PO Q6H PRN PRN Reason: Pain (severe 7-10) Last Admin: 03/10/17 05:00 Dose: 5 mg Admin: 03/09/17 09:21 Dose: 5 mg Admin: 03/08/17 20:58 Dose: 5 mg Admin: 03/08/17 14:31 Dose: 5 mg Admin: 03/07/17 23:37 Dose: 5 mg Oxycodone/Acetaminophen (Percocet 325-5 Mg) 1 - 2 tab PO Q4H PRN PRN Reason: Pain Last Admin: 03/10/17 16:25 Dose: 2 tab Admin: 03/10/17 09:59 Dose: 2 tab Admin: 03/10/17 03:14 Dose: 2 tab Admin: 03/09/17 21:22 Dose: 2 tab Admin: 03/09/17 17:21 Dose: 2 tab Admin: 03/09/17 09:43 Dose: 2 tab Admin: 03/08/17 22:18 Dose: 2 tab Admin: 03/08/17 18:11 Dose: 2 tab Admin: 03/07/17 21:11 Dose: 1 tab Sodium Chloride (Saline Flush) 10 ml FLUSH ASDIRECTED PRN PRN Reason: Keep Vein Open - Assessment Assessment (Free Text/Narrative):: POD#2 - removal or hardware left fibula and ORIF of left distal tibia and fibular fractures - Plan Plan (Free Text/Narrative):: 1. The pt has met inpatient therapy goals. 2. The pt feels prepared for discharge to home. 3. 325mg ASA BID, frequent mobility. 4. f/u at outpatient Clinic The pt's case was discussed with Dr. Valente.
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
== END 2017-03-10 16:55 | disposition home or self-care (01) | DRG 494 ==
LOC: JD.ED 15:54 → JD.MS 18:20
PROVIDERS: ADMIT Orthopaedic Surgery; ATTEND Orthopaedic Surgery
PROC: 0QSK04Z Reposition Left Fibula with Internal Fixation Device, Open Approach (ICD-10-PCS; principal; 2017-03-08)
PROC: 0QSH04Z Reposition Left Tibia with Internal Fixation Device, Open Approach (ICD-10-PCS; 2017-03-08)
PROC: 0YPB0YZ Removal of Other Device from Left Lower Extremity, Open Approach (ICD-10-PCS; 2017-03-08)
DX: S82.202A Unspecified fracture of shaft of left tibia, initial encounter for closed fracture (principal); S82.402A Unspecified fracture of shaft of left fibula, initial encounter for closed fracture; S60.222A Contusion of left hand, initial encounter; S60.311A Abrasion of right thumb, initial encounter; S60.312A Abrasion of left thumb, initial encounter; S70.312A Abrasion, left thigh, initial encounter; S70.311A Abrasion, right thigh, initial encounter; S01.512A Laceration without foreign body of oral cavity, initial encounter; S52.022A Displaced fracture of olecranon process without intraarticular extension of left ulna, initial encounter for closed fracture; V29.49XA Motorcycle driver injured in collision with other motor vehicles in traffic accident, initial encounter; Y92.410 Unspecified street and highway as the place of occurrence of the external cause; I25.2 Old myocardial infarction; Z87.898 Personal history of other specified conditions; E66.9 Obesity, unspecified; F17.200 Nicotine dependence, unspecified, uncomplicated; Z68.30 Body mass index [BMI] 30.0-30.9, adult
CPT/HCPCS: 01480; 12011; 36415; 62322; 70450; 70450-26; 71260; 71260-26; 72125; 72125-26; 72128; 72128-26; 72131; 72131-26; 73090-26-LT; 73090-LT; 73130-26-LT; 73130-LT; 73590-26-LT; 73590-LT; 73610-26-LT; 73610-LT; 74177; 74177-26; 76000; 76000-26; 80048; 80053; 82150; 85025; 85610; 85730; 87641; 90471; 90715; 93005; 94762; 96361; 96374; 96375; 96376; 97116-GP; 97161-GP; 99285; 99285-25; A9270-GY; C1713; C1776; G0390; G0480; J0690; J1170; J1200; J1885; J2060; J2250; J2270; J2405; J2704; J2765; J3010; J3490; J7040; J7050; J7120; Q9967